=== PATIENT | male | born 1960 | race American Indian/Alaskan Native ===

== ENCOUNTER 2017-10-20 09:22 | Outpatient (CLI) | payer OTHER | END 2017-10-20 09:27 | disposition home or self-care (01) | LOC: LAB 09:22 | DX: I10 Essential (primary) hypertension (principal); E11.9 Type 2 diabetes mellitus without complications; E78.2 Mixed hyperlipidemia; M79.641 Pain in right hand ==

== ENCOUNTER 2018-01-12 07:33 | Outpatient (CLI) | payer OTHER | END 2018-01-12 07:40 | disposition home or self-care (01) | LOC: LAB 07:33 | DX: H43.12 Vitreous hemorrhage, left eye (principal) ==

== ENCOUNTER 2022-12-29 14:39 | Outpatient (CLI) | payer OTHER | END 2022-12-29 14:56 | disposition home or self-care (01) | LOC: RAD 14:39 | PROVIDERS: ATTEND Ophthalmology | DX: Z98.41 Cataract extraction status, right eye (principal); H25.011 Cortical age-related cataract, right eye ==

== ENCOUNTER 2024-01-15 06:52 | Outpatient (CLI) | payer OTHER ==
[2024-01-15 08:07] LABS: HEMATOCRIT 37.7 % (39.0-48.0); HEMOGLOBIN 13.1 g/dL (13-16.00); MEAN CELL VOLUME 87.4 fL (80.0-100.00); MEAN CORPUSCULAR HEMOGLOBIN 30.3 pg (27.00-32.0); MEAN CORPUSCULAR HGB CONC 34.7 g/dl (32.0-36.0); PLATELET COUNT 282 K/uL (150-450); RED BLOOD COUNT 4.31 M/uL (4.00-6.00); RED CELL DISTRIBUTION WIDTH 12.9 % (11.5-14.5)
[2024-01-15 08:43] LABS: ALBUMIN 3.7 gm/dL (3.4-5.0); BILIRUBIN TOTAL 0.57 mg/dL (0.3-1.2); CALCIUM 8.5 mg/dL (8.5-10.1); CHOL HDL RATIO 3.1 (0-5.0); CREATININE SERUM 1.36 mg/dL (0.70-1.30); GFR 53.1; GLOBULINA 3.1 G/DL (2.4-3.5); POTASSIUM 4.76 mEq/L (3.5-5.1); TOTAL PROTEIN 6.8 gm/dL (6.4-8.2)
[2024-01-15 08:51] LABS: TSH 2.79 uIU/mL (0.358-3.74)
== END 2024-01-15 06:53 | disposition home or self-care (01) ==
LOC: LAB 06:52
PROVIDERS: ATTEND Internal Medicine
DX: R94.5 Abnormal results of liver function studies (principal); E04.1 Nontoxic single thyroid nodule; I10 Essential (primary) hypertension; E11.40 Type 2 diabetes mellitus with diabetic neuropathy, unspecified; L04.8 Acute lymphadenitis of other sites; I88.9 Nonspecific lymphadenitis, unspecified

== ENCOUNTER 2024-01-15 07:22 | Outpatient (CLI) | payer OTHER | END 2024-01-15 07:34 | disposition home or self-care (01) | LOC: RAD 07:22 | PROVIDERS: ATTEND Internal Medicine | DX: R05.9 Cough, unspecified (principal); I10 Essential (primary) hypertension; M25.542 Pain in joints of left hand ==